=== PATIENT | female | born 1965 | race Caucasian/White ===

== ENCOUNTER 2017-05-21 15:34 | Emergency (ER) | payer BC, OTHER ==
--- NOTE | 2017-05-21 16:05 | ER Document Report ---
ED Medical Screen (RME) - General Chief Complaint: Pain All Over Stated Complaint: SENT FROM [facility] OFFICE WITH PAIN Time Seen by Provider: 05/21/17 15:59 TRAVEL OUTSIDE OF THE [place] 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 states symptoms ongoing greater than 24 hours - Related Data Allergies/Adverse Reactions: No Known Allergies Allergy (Verified 05/21/17 15:40) Past Medical History - Social History Chew tobacco use (# tins/day): No Frequency of alcohol use: None Drug Abuse: None Renal/ Medical History: Denies: Hx Peritoneal Dialysis - Immunizations Hx Diphtheria, Pertussis, Tetanus Vaccination: No Review of Systems - Review of Systems Musculoskeletal: Other - Forgetful Physical Exam - Vital signs Vitals: Temp Pulse Resp BP Pulse Ox 97.5 F 93 18 141/80 H 99 05/21/17 15:40 05/21/17 15:40 05/21/17 15:40 05/21/17 15:40 05/21/17 15:40 - Respiratory Respiratory status: No respiratory distress Chest status: Nontender Breath sounds: Normal Chest palpation: Normal Course - Vital Signs Vital signs: Temp Pulse Resp BP Pulse Ox 97.5 F 93 18 141/80 H 99 05/21/17 15:40 05/21/17 15:40 05/21/17 15:40 05/21/17 15:40 05/21/17 15:40
--- NOTE | 2017-05-21 16:31 | RADIOLOGY REPORT (SQ) ---
EXAM DESCRIPTION: CT HEAD WITHOUT COMPLETED DATE/TIME: 05/21/2017 4:20 pm REASON FOR STUDY: ams COMPARISON: None. TECHNIQUE: Axial images acquired through the brain without intravenous contrast. Images reviewed wi th bone, brain and subdural windows. Images stored on PACS. All CT scanners at this facility use dose modulation, iterative reconstruction, and/or weight based d osing when appropriate to reduce radiation dose to as low as reasonably achievable (ALARA). [facility]: Dose Right [facility]: CareDose [facility]: Dose Right [facility]: Teradose 4D [facility]: Smart MLW Squared RADIATION DOSE: Up-to-date CT equipment and radiation dose reduction techniques were employed. CTDIv ol: 64.6 mGy. DLP: 1163 mGy-cm. mGy. LIMITATIONS: None. FINDINGS: VENTRICLES: Normal size and contour. CEREBRUM: No masses. No hemorrhage. No midline shift. Normal harper/white matter differentiation. N o evidence for acute infarction. CEREBELLUM: No masses. No hemorrhage. No alteration of density. No evidence for acute infarction. EXTRAAXIAL SPACES: No fluid collections. No masses. ORBITS AND GLOBE: No intra- or extraconal masses. Normal contour of globe without masses. CALVARIUM: No fracture. PARANASAL SINUSES: No fluid or mucosal thickening. SOFT TISSUES: No mass or hematoma. OTHER: No other significant finding. IMPRESSION: NORMAL BRAIN CT WITHOUT CONTRAST. TECHNICAL DOCUMENTATION: JOB ID: [id number] Quality ID # [id number]: Final reports with documentation of one or more dose reduction techniques (e.g., Au tomated exposure control, adjustment of the mA and/or kV according to patient size, use of iterative reconstruction technique) 2010 [employer]- All Rights Reserved
[2017-05-21 16:42] LABS: ABSOLUTE BASOPHILS # (AUTO) 0.1 10^3/uL (0.0-0.2); ABSOLUTE EOSINOPHILS # (AUTO) 0.2 10^3/uL (0.0-0.6); ABSOLUTE LYMPHOCYTES (AUTO) 2.5 10^3/uL (0.5-4.7); ABSOLUTE MONOCYTES (AUTO) 0.6 10^3/uL (0.1-1.4); ABSOLUTE NEUT (AUTO) 3.2 10^3/uL (1.7-8.2); BASOPHILS % (AUTO) 1.1 % (0-2); EOSINOPHILS % (AUTO) 3.8 % (0-6); HEMATOCRIT 35.7 % (36.0-47.0); HEMOGLOBIN 11.7 g/dL (12.0-15.5); HGB HCT DIFFERENCE -0.6; LYMPHOCYTES % (AUTO) 37.5 % (13-45); MEAN CORPUSCULAR HEMOGLOBIN 29.2 pg (27.0-33.4); MEAN CORPUSCULAR HGB CONC 32.8 g/dL (32.0-36.0); MEAN CORPUSCULAR VOLUME 89 fl (80-97); MONOCYTES % (AUTO) 9.4 % (3-13); RED BLOOD COUNT 4.02 10^6/uL (3.72-5.28); RED CELL DISTRIBUTION WIDTH 15.3 % (11.5-14.0); SEGMENTED NEUTROPHILS % (AUTO) 48.2 % (42-78); WHITE BLOOD COUNT 6.6 10^3/uL (4.0-10.5)
--- NOTE | 2017-05-21 16:44 | ER Document Report ---
ED General - General Chief Complaint: Pain All Over Stated Complaint: SENT FROM DRS OFFICE WITH PAIN Time Seen by Provider: 05/21/17 15:59 Notes: 51-year-old female presents with total body muscle pain for 3 weeks, constant, associated with increased sleepiness during the day dozing off at work right hand tremor and tingling in all 4 extremities. These have been constant and are worsening slightly. She states this all started 3 months ago after she had an adrenalectomy which resulted in a bleeding complication necessitating emergency laparotomy, her who is a medical provider states that she nearly went into PEA arrest had a blood pressure of 40 and received 10 units of blood products. When she was discharged in the hospital the symptoms all began and her doctor said they would get better but they have not. She was at [facility] today getting lab results and came here to get checked out. is concerned that she will continue to deteriorate. Other than right hand tremor and intermittent tingling she has no unilateral neurologic symptoms. No headaches. No dark urine. Of note she had labs today at [facility] that showed a normal CBC, normal chemistry and LFTs, normal TSH and cortisol. She was told that she has "something neurologic" and is been referred to neurology but is not to be seen until June. TRAVEL OUTSIDE OF THE [place] IN LAST 30 DAYS: No - Related Data Allergies/Adverse Reactions: No Known Allergies Allergy (Verified 05/21/17 15:40) Past Medical History - General Information source: Patient - Social History Smoking Status: Never Smoker Chew tobacco use (# tins/day): No Frequency of alcohol use: None Drug Abuse: None Family History: None Patient has suicidal ideation: No Patient has homicidal ideation: No Renal/ Medical History: Denies: Hx Peritoneal Dialysis - Immunizations Hx Diphtheria, Pertussis, Tetanus Vaccination: No Review of Systems - Review of Systems Notes: REVIEW OF SYSTEMS GEN: Denies fever, chills, weight loss ENT: Denies sore throat, nasal discharge, ear pain EYES: Denies blurry vision, eye pain, discharge CV: Denies chest pain, palpitations, edema RESP: Denies cough, shortness of breath, wheezing GI: Denies abdominal pain, nausea, vomiting, diarrhea MSK: Denies joint pain/swelling, edema, flakes SKIN: Denies rash, skin lesions LYMPH: Denies swollen glands/lymph nodes NEURO: Daytime sleepiness right arm tingling PSYCH: Denies depression, suicidal or homicidal ideation PHYSICAL EXAMINATION General: No acute distress, well-nourished Head: Atraumatic, normocephalic ENT: Mouth normal, oropharynx moist, no exudates or tonsillar enlargement Eyes: Conjunctiva normal, pupils equal, lids normal Neck: No JVD, supple, no guarding CVS: Normal rate, regular rhythm, no murmurs Resp: No resp distress, equal and normal breath sounds bilaterally GI: Nondistended, soft, no tenderness to palpation, no rebound or guarding Ext: No deformities, no edema, normal range of motion in upper and lower ext Back: No CVA or midline TTP Skin: No rash, warm Lymphatic: No lymphadeopathy noted Neuro: Awake, alert. Face symmetric. GCS 15. 2 through 12 intact. No pronator drift, normal sensation in all 4 extremities grossly normal strength in arms wrists hands and legs and feet. Physical Exam - Vital signs Vitals: Temp Pulse Resp BP Pulse Ox 97.5 F 93 18 141/80 H 99 05/21/17 15:40 05/21/17 15:40 05/21/17 15:40 05/21/17 15:40 05/21/17 15:40 Course - Re-evaluation Re-evalutation: 05/21/17 16:42 31-year-old female presents with subacute neurologic symptoms for several weeks after an episode of hypovolemic shock she has a history of sleep apnea and had a gastric band and now has increased daytime sleepiness. This may be a result of occult sleep apnea, she also might of had brain ischemia or small strokes after her episode of hypovolemia she has no acute neurologic deficits now is wide awake and has normal vital signs. Review of her labs really can help including both salt and TSH are normal so I doubt this is myxedema, or hypothyroidism or Woodward's crisis. She certainly needs follow-up with neurology but did not have an acute neurologic issue and is stable for discharge. I explained this to she and her who were understanding. I have discussed with the patient there likely diagnosis, aftercare plan, follow -up plans and my usual and customary return precautions. They verbalized understanding of this. - Vital Signs Vital signs: Temp Pulse Resp BP Pulse Ox 97.5 F 93 18 141/80 H 99 05/21/17 15:40 05/21/17 15:40 05/21/17 15:40 05/21/17 15:40 05/21/17 15:40 - Laboratory Result Diagrams: 05/21/17 16:25 05/21/17 16:25 Laboratory results interpreted by me: 05/21/17 16:25 Hgb 11.7 L Hct 35.7 L RDW 15.3 H - Diagnostic Test Radiology reviewed: Image reviewed Discharge - Discharge Clinical Impression: Excessive sleepiness Condition: Good Disposition: HOME, SELF-CARE Additional Instructions: He was evaluated in the emergency room for increasing drowsiness and sleepiness during the day along with some neurologic symptoms. We did not find any strokes or bleeds or tumors on her head CT and her neurologic exam was normal. I have reviewed her labs from [facility] and they are also normal including your adrenal function and thyroid function. It can be frustrating to not know what is going on however I do not think this is emergent. If any of your symptoms worsen or he were concerned about confusion or unresponsiveness please call 911 or return to the ER. Otherwise please call [facility] and your neurologist expedite appointments with them.
[2017-05-21 16:54] LABS: ALANINE AMINOTRANSFERASE 39 U/L (9-52); ALKALINE PHOSPHATASE 72 U/L (38-126); ANION GAP 8 (5-19); ASPARTATE AMINO TRANSFERASE 33 U/L (14-36); BILIRUBIN,DIRECT 0.3 mg/dL (0.0-0.4); BILIRUBIN,TOTAL 0.3 mg/dL (0.2-1.3); BLOOD UREA NITROGEN 12 mg/dL (7-20); CALCIUM 10.1 mg/dL (8.4-10.2); CARBON DIOXIDE 30 mmol/L (22-30); CHLORIDE 102 mmol/L (98-107); CREATININE RESULT 0.67 mg/dL (0.52-1.25); GLUCOSE 82 mg/dL (75-110); LIPASE 147.3 U/L (23-300); POTASSIUM 4.4 mmol/L (3.6-5.0); SODIUM 140.3 mmol/L (137-145); TOTAL PROTEIN 6.6 g/dL (6.3-8.2)
[2017-05-21 17:30] VITALS: BP 141/72
== END 2017-05-21 17:30 | disposition home or self-care (01) ==
LOC: ER 15:34
DX: G47.10 Hypersomnia, unspecified (principal); M79.1 Myalgia; R25.1 Tremor, unspecified; R20.2 Paresthesia of skin; E89.6 Postprocedural adrenocortical (-medullary) hypofunction; Z98.84 Bariatric surgery status; Z86.69 Personal history of other diseases of the nervous system and sense organs
CPT/HCPCS: 36415; 70450; 80053; 83690; 85025; 99284

== ENCOUNTER → 2017-10-21 | Outpatient (CLI) | payer BC, OTHER ==
--- NOTE | 2017-10-22 10:03 | RADIOLOGY REPORT (SQ) ---
EXAM DESCRIPTION: MRI CERVICAL SPINE COMBO COMPLETED DATE/TIME: 10/21/2017 5:53 pm REASON FOR STUDY: Other symptoms and signs involving the musculoskeletal system R29.898 OT SYMPTOM S AND SIGNS INVOLVING THE MUSCULOSKELETAL COMPARISON: None. TECHNIQUE: Sagittal and Axial imaging includes T1, T2, STIR and gradient echo sequences. T1 post ivy olinium sequences. CONTRAST TYPE AND DOSE: 10 mL Multihance. RENAL FUNCTION: GFR > 60. LIMITATIONS: Mild motion artifact on some of the pulse sequences FINDINGS: ALIGNMENT: Normal. VERTEBRAE: Intact. BONE MARROW: Normal. No marrow replacement or reactive changes. DISCS: Normal. No significant abnormal signal or loss of height. HARDWARE: None in the spine. CORD AND BASE OF BRAIN: Normal in size and signal intensity. SOFT TISSUES: No soft tissue masses. C1-C2: No significant spinal stenosis. C2-C3: No significant spinal stenosis or exit foraminal stenosis. C3-C4: No significant spinal stenosis or exit foraminal stenosis. C4-C5: Mild diffuse posterior disc bulging is present without significant central or foraminal sten osis. C5-C6: Mild diffuse posterior disc bulging is present without significant central or foraminal stenos is. C6-C7: No significant spinal stenosis or exit foraminal stenosis. C7-T1: No significant spinal stenosis or exit foraminal stenosis. UPPER THORACIC: Incompletely imaged. No significant spinal stenosis or exit foraminal stenosis. ENHANCEMENT: No abnormal vertebral body, intervertebral disc, cervical cord, or cervical nerve root e nhancement. OTHER: No other significant finding. IMPRESSION: Essentially normal study for age COMMENT: None. TECHNICAL DOCUMENTATION: JOB ID: [id number] [employer]- All Rights Reserved
== END ==
LOC: RAD 16:45
PROVIDERS: ATTEND Internal Medicine
DX: R29.898 Other symptoms and signs involving the musculoskeletal system (principal)
CPT/HCPCS: 82565; 72156; A9577